=== PATIENT | female | born 1990 ===

== ENCOUNTER 2018-07-27 07:41 | Outpatient (CLI) | payer OTHER ==
[~2018-07-27] VITALS: Ht 170.2 cm; Wt 71.2 kg
[2018-07-27] MEDS ORDERED: ZANTAC300 MG PO (08:58)
[2018-07-27] MEDS ORDERED: FLONASE16 GM NASAL (08:59)
== END 2018-07-27 08:05 | disposition home or self-care (01) ==
LOC: OFIC 805 07:41
DX: J35.1 Hypertrophy of tonsils (principal); J35.01 Chronic tonsillitis; J31.0 Chronic rhinitis; R49.8 Other voice and resonance disorders